=== PATIENT | male | born 1985 | race Caucasian/White ===

== ENCOUNTER 2020-01-22 15:11 | Emergency (ER) | payer MEDICARE, OTHER ==
[~2020-01-22] VITALS: Ht 193 cm; Wt 106.6 kg
[2020-01-22 16:04] LABS: ABSOLUTE EOSINOPHILS 0.1 thou/uL (0.0-0.7); ABSOLUTE LYMPHOCYTES 2.6 thou/uL (0.8-5.3); ABSOLUTE MONOCYTES 0.6 thou/uL (0.0-1.2); ABSOLUTE NEUTROPHILS 6.2 thou/uL (1.6-8.1); BASOPHILS 0.4 %; HEMATOCRIT 48.7 % (42.0-52.0); HEMOGLOBIN 16.8 gm/dL (14.0-18.0); LYMPHOCYTES 27.1 %; MCH 29.4 pg (26.0-34.0); MCHC 34.5 g/dL (28.0-37.0); MCV 85.1 fL (80.0-100.0); MONOCYTES 6.4 %; MPV 9.6 fl. (7.2-11.1); NUCLEATED RBCS 0 /100WBC; PLATELET COUNT* 184 thou/uL (150-400); POLYS 65.1 %; RBC 5.73 mil/uL (4.50-6.00); RDW-CV 13.6 % (10.5-14.5); WBC 9.6 thou/uL (4.0-11.0)
[2020-01-22 16:06] LABS: CALCIUM 9.3 mg/dL (8.5-10.1); CREATININE 1.1 mg/dL (0.6-1.3); POTASSIUM 3.4 mmol/L (3.5-5.1)
[2020-01-22 16:13] LABS: APTT 26.3 Seconds (25.0-31.3); PROTIME 10.6 Seconds (9.20-11.50)
[2020-01-22 16:17] LABS: ALBUMIN 4.7 g/dL (3.4-5.0); TOTAL BILIRUBIN 0.6 mg/dL (<0.1-1.0); TOTAL PROTEIN 8.1 g/dL (6.4-8.2)
[2020-01-22 18:50] VITALS: BP 135/76
== END 2020-01-22 18:51 | disposition home or self-care (01) ==
LOC: M.ERS 15:11
PROVIDERS: Nurse Practitioner Family
DX: R07.89 Other chest pain (principal)

== ENCOUNTER 2020-12-31 15:54 | Emergency (ER) | payer OTHER ==
[~2020-12-31] VITALS: Ht 193 cm; Wt 111.1 kg
[2020-12-31] MEDS ORDERED: OMEPRAZOLE 20 M20 M1 PO (16:01)
[2020-12-31] MEDS ORDERED: NORVASC5 MG PO (16:01)
--- NOTE | 2020-12-31 16:20 | EKG ---
[place] [address] ELECTROCARDIOGRAM REPORT Name: JAREK MEREDITH Room: [facility]#: [id number] Admission: 12/31/20 Attend Phys: Discharge: Date of : 87 Date of Service: 12/31/20 1557 Report #: [id number] THIS REPORT FOR: //name// [facility] ED Test Date: 2020-12-31 Test Time: 15:57:09 Pat Name: JAREK MEREDITH Department: Room: Gender: [employer]: : 1985 Requested By: Turner Venegas Order Number: [id number] MD: Ethan Sofia Measurements Intervals [place] Rate: 73 P: 65 UT: 171 QRS: 48 QRSD: 103 T: 16 QT: 391 QTc: 431 Interpretive Statements Sinus rhythm No previous ECG available for comparison Electronically Signed On 12-31-2020 16:19:59 CDT by Ethan Sofia [email or web address] <ELECTRONICALLY SIGNED> By: Ethan Sofia MD, [facility] 12/31/20 1619 1557 1557 Ethan Sofia MD, FACC /EPI
[2020-12-31 16:28] LABS: ABSOLUTE BASOPHILS 0.1 thou/uL (0.0-0.2); ABSOLUTE EOSINOPHILS 0.1 thou/uL (0.0-0.7); ABSOLUTE LYMPHOCYTES 2.4 thou/uL (0.8-5.3); ABSOLUTE MONOCYTES 0.8 thou/uL (0.0-1.2); ABSOLUTE NEUTROPHILS 5.2 thou/uL (1.6-8.1); BASOPHILS 1.2 %; HEMATOCRIT 44.9 % (42.0-52.0); HEMOGLOBIN 15.6 gm/dL (14.0-18.0); LYMPHOCYTES 27.5 %; MCH 29.5 pg (26.0-34.0); MCHC 34.8 g/dL (28.0-37.0); MCV 84.7 fL (80.0-100.0); MONOCYTES 9.7 %; NUCLEATED RBCS 0 /100WBC; PLATELET COUNT* 171 thou/uL (150-400); POLYS 60.6 %; RBC 5.31 mil/uL (4.50-6.00); RDW-CV 13.6 % (10.5-14.5); WBC 8.6 thou/uL (4.0-11.0)
[2020-12-31 16:39] LABS: ANION GAP 5 mmol/L (7-16); BUN 13 mg/dL (7-18); CALCIUM 8.5 mg/dL (8.5-10.1); CHLORIDE 104 mmol/L (98-107); CO2 30 mmol/L (21-32); CREATININE 0.9 mg/dL (0.6-1.3); GLUCOSE 96 mg/dL (70-99); POTASSIUM 3.9 mmol/L (3.5-5.1); SODIUM 139 mmol/L (136-145)
[2020-12-31 16:53] LABS: ALBUMIN 4.4 g/dL (3.4-5.0); ALKALINE PHOSPHATASE 44 U/L (46-116); CK-MB MASS 0.8 ng/mL (<0.5-3.6); LIPASE 230 U/L (73-393); MAGNESIUM 1.9 mg/dL (1.8-2.4); NT-PRO BRAIN NAT PEPTIDE < 5 pg/mL (<300); SGOT 30 U/L (15-37); SGPT 92 U/L (30-65); TOTAL BILIRUBIN 0.4 mg/dL (<0.1-1.0); TOTAL PROTEIN 7.6 g/dL (6.4-8.2)
[2020-12-31 17:13] VITALS: BP 155/85
== END 2020-12-31 17:13 | disposition home or self-care (01) ==
LOC: M.ERS 15:54
PROVIDERS: Family Medicine
DX: F41.9 Anxiety disorder, unspecified (principal); R42 Dizziness and giddiness; R61 Generalized hyperhidrosis; Z79.2 Long term (current) use of antibiotics